=== PATIENT | male | born 1950 | race Hispanic/Latino ===

== ENCOUNTER 2024-02-28 13:20 | Emergency (ER) | payer BC ==
[~2024-02-28] VITALS: Ht 167.6 cm; Wt 64.0 kg
[2024-02-28 14:04] VITALS: BP 137/79
[2024-02-28 14:15] VITALS: BP 129/75
[2024-02-28 14:30] VITALS: BP 139/75
[2024-02-28 14:45] VITALS: BP 132/74
[2024-02-28 15:00] VITALS: BP 142/78
[2024-02-28 15:15] VITALS: BP 137/76
== END 2024-02-28 15:23 | disposition home or self-care (01) | DRG 726 ==
LOC: ED 13:20
DX: N40.0 Benign prostatic hyperplasia without lower urinary tract symptoms (principal); R33.9 Retention of urine, unspecified